=== PATIENT | male | born 1975 | race Caucasian/White ===

== ENCOUNTER 2024-10-22 09:06 | Day surgery (SDC) | payer BC ==
[2024-10-21 16:33] VITALS: BMI 32.6
[2024-10-22] MEDS ORDERED: KETAMINE HCL 100 MG/ML - 5ML VIAL ONE (11:35)
[2024-10-22] MEDS ORDERED: SUCCINYLCHOLINE CHLORIDE 200 MG/10 ML SYRINGE ONE (11:37)
[2024-10-22 12:47] VITALS: PULSE 78; RESP 19; TEMP 98
[2024-10-22 13:02] VITALS: BP 112/60
== END 2024-10-22 12:45 | disposition home or self-care (01) ==
LOC: FECT 09:06
PROVIDERS: ATTEND Student in an Organized Health Care Education/Training Program
PROC: GZB4ZZZ Other Electroconvulsive Therapy (ICD-10-PCS; principal; 2024-10-22 11:42)
DX: F33.9 Major depressive disorder, recurrent, unspecified (principal)
CPT/HCPCS: 90870; 94760

== ENCOUNTER 2024-10-27 06:47 | Day surgery (SDC) | payer BC ==
[2024-10-22 11:49] VITALS: BMI 32.6
[2024-10-27] MEDS ORDERED: SUCCINYLCHOLINE CHLORIDE 200 MG/10 ML SYRINGE ONE (07:43)
[2024-10-27] MEDS ORDERED: PROPOFOL 20 ML ONE (07:43)
[2024-10-27] MEDS ORDERED: KETAMINE HCL 100 MG/ML - 5ML VIAL ONE (07:43)
[2024-10-27] MEDS ORDERED: KETOROLAC TROMETHAMINE 30 MG/1 ML VIAL ONE (07:44)
[2024-10-27 08:45] VITALS: RESP 18; TEMP 98.2
[2024-10-27 09:17] VITALS: BP 139/74; PULSE 69
== END 2024-10-27 09:15 | disposition home or self-care (01) ==
LOC: FECT 06:47
PROVIDERS: ATTEND Student in an Organized Health Care Education/Training Program
PROC: GZB4ZZZ Other Electroconvulsive Therapy (ICD-10-PCS; principal; 2024-10-27 07:56)
DX: F32.A Depression, unspecified (principal)
CPT/HCPCS: 90870; 94760

== ENCOUNTER 2024-11-04 10:06 | Day surgery (SDC) | payer BC ==
[2024-11-02 14:33] VITALS: BMI 32.6
[2024-11-04 12:32] VITALS: RESP 16
[2024-11-04 13:09] VITALS: TEMP 98
[2024-11-04 13:29] VITALS: BP 114/71; PULSE 76
== END 2024-11-04 13:30 | disposition home or self-care (01) ==
LOC: FECT 10:06
PROVIDERS: ATTEND Student in an Organized Health Care Education/Training Program
PROC: GZB4ZZZ Other Electroconvulsive Therapy (ICD-10-PCS; principal; 2024-11-04 12:03)
DX: F32.A Depression, unspecified (principal)
CPT/HCPCS: 90870; 94760

== ENCOUNTER 2024-11-08 06:56 | Day surgery (SDC) | payer BC ==
[2024-11-05 13:49] VITALS: BMI 32.6
[2024-11-08 09:15] VITALS: RESP 20; TEMP 97.8
[2024-11-08 09:29] VITALS: BP 116/68; PULSE 62
== END 2024-11-08 09:15 | disposition home or self-care (01) ==
LOC: FECT 06:56
PROVIDERS: ATTEND Student in an Organized Health Care Education/Training Program
PROC: GZB4ZZZ Other Electroconvulsive Therapy (ICD-10-PCS; principal; 2024-11-08 07:44)
DX: F33.2 Major depressive disorder, recurrent severe without psychotic features (principal)
CPT/HCPCS: 90870; 94760

== ENCOUNTER → 2024-11-11 | Day surgery (SDC) | payer BC ==
[2024-11-09 13:23] VITALS: BMI 32.6
[~2024-11-11] MED LIST: KETAMINE HCL 100 MG/ML - 5ML VIAL ONE
[2024-11-11 13:41] VITALS: RESP 16; TEMP 97.9
[2024-11-11 13:45] VITALS: BP 125/79; PULSE 70
== END | disposition home or self-care (01) ==
LOC: FECT 11:11
PROVIDERS: ATTEND Student in an Organized Health Care Education/Training Program
PROC: GZB4ZZZ Other Electroconvulsive Therapy (ICD-10-PCS; principal; 2024-11-11 12:57)
DX: F33.2 Major depressive disorder, recurrent severe without psychotic features (principal)
CPT/HCPCS: 90870; 94760

== ENCOUNTER 2024-11-18 13:01 | Day surgery (SDC) | payer BC ==
[2024-11-18 13:12] VITALS: BMI 32.6
[2024-11-18 14:36] VITALS: TEMP 97.8
[2024-11-18 14:54] VITALS: BP 137/83; PULSE 64; RESP 18
== END 2024-11-18 14:55 | disposition home or self-care (01) ==
LOC: FECT 13:01
PROVIDERS: ATTEND Psychiatry & Neurology Psychiatry
PROC: GZB4ZZZ Other Electroconvulsive Therapy (ICD-10-PCS; principal; 2024-11-18 13:53)
DX: F33.2 Major depressive disorder, recurrent severe without psychotic features (principal)
CPT/HCPCS: 90870; 94760

== ENCOUNTER 2024-11-19 09:37 | Day surgery (SDC) | payer BC ==
[2024-11-18 14:33] VITALS: BMI 32.6
[2024-11-19 12:22] VITALS: BP 118/77; PULSE 57; RESP 16; TEMP 99
== END 2024-11-19 12:45 | disposition home or self-care (01) ==
LOC: FECT 09:37
PROVIDERS: ATTEND Student in an Organized Health Care Education/Training Program
PROC: GZB4ZZZ Other Electroconvulsive Therapy (ICD-10-PCS; principal; 2024-11-19 11:22)
DX: F33.2 Major depressive disorder, recurrent severe without psychotic features (principal)
CPT/HCPCS: 90870; 94760

== ENCOUNTER 2024-11-26 06:32 | Day surgery (SDC) | payer BC ==
[2024-11-22 10:23] VITALS: BMI 32.6
[2024-11-26 08:39] VITALS: RESP 18; TEMP 97.9
[2024-11-26 09:36] VITALS: BP 124/76; PULSE 71
== END 2024-11-26 09:47 | disposition home or self-care (01) ==
LOC: FECT 06:32
PROVIDERS: ATTEND Student in an Organized Health Care Education/Training Program
PROC: GZB4ZZZ Other Electroconvulsive Therapy (ICD-10-PCS; principal; 2024-11-26 07:58)
DX: F33.2 Major depressive disorder, recurrent severe without psychotic features (principal)
CPT/HCPCS: 90870; 94760

== ENCOUNTER 2024-12-10 10:22 | Day surgery (SDC) | payer BC ==
[2024-12-02 13:20] VITALS: BMI 32.6
[2024-12-10 11:23] VITALS: PULSE 69
[2024-12-10 13:19] VITALS: RESP 16; TEMP 98
[2024-12-10 13:37] VITALS: BP 126/72
== END 2024-12-10 13:10 | disposition home or self-care (01) ==
LOC: FECT 10:22
PROVIDERS: ATTEND Student in an Organized Health Care Education/Training Program
PROC: GZB4ZZZ Other Electroconvulsive Therapy (ICD-10-PCS; principal; 2024-12-10 11:03)
DX: F33.2 Major depressive disorder, recurrent severe without psychotic features (principal)
CPT/HCPCS: 90870; 94760

== ENCOUNTER 2024-12-16 10:13 | Day surgery (SDC) | payer BC ==
[2024-12-13 09:22] VITALS: BMI 32.6
[2024-12-16] MEDS ORDERED: KETAMINE HCL 100 MG/ML - 5ML VIAL ONE (10:43)
[2024-12-16 12:36] VITALS: BP 121/71; PULSE 68; RESP 18; TEMP 97
== END 2024-12-16 12:45 | disposition home or self-care (01) ==
LOC: FECT 10:13
PROVIDERS: ATTEND Student in an Organized Health Care Education/Training Program
PROC: GZB4ZZZ Other Electroconvulsive Therapy (ICD-10-PCS; principal; 2024-12-16 11:00)
DX: F32.A Depression, unspecified (principal)
CPT/HCPCS: 90870; 94760

== ENCOUNTER 2024-12-23 07:08 | Day surgery (SDC) | payer BC ==
[2024-12-23 07:28] VITALS: BMI 32.6
[2024-12-23] MEDS ORDERED: KETAMINE HCL 100 MG/ML - 5ML VIAL ONE (08:31)
[2024-12-23 09:43] VITALS: RESP 18; TEMP 97.5
[2024-12-23 10:04] VITALS: BP 130/88; PULSE 66
== END 2024-12-23 10:00 | disposition home or self-care (01) ==
LOC: FECT 07:08
PROVIDERS: ATTEND Student in an Organized Health Care Education/Training Program
PROC: GZB4ZZZ Other Electroconvulsive Therapy (ICD-10-PCS; principal; 2024-12-23 08:45)
DX: F32.A Depression, unspecified (principal)
CPT/HCPCS: 90870; 94760

== ENCOUNTER 2025-01-13 10:45 | Day surgery (SDC) | payer BC ==
[2025-01-07 14:21] VITALS: BMI 32.6
[2025-01-13] MEDS ORDERED: KETAMINE HCL 100 MG/ML - 5ML VIAL ONE (12:31)
[2025-01-13 13:33] VITALS: RESP 18; TEMP 98
[2025-01-13 13:58] VITALS: BP 131/89; PULSE 84
== END 2025-01-13 14:00 | disposition home or self-care (01) ==
LOC: FECT 10:45
PROVIDERS: ATTEND Student in an Organized Health Care Education/Training Program
PROC: GZB4ZZZ Other Electroconvulsive Therapy (ICD-10-PCS; principal; 2025-01-13 12:50)
DX: F33.9 Major depressive disorder, recurrent, unspecified (principal)
CPT/HCPCS: 90870; 94760

== ENCOUNTER 2025-01-20 11:58 | Day surgery (SDC) | payer BC ==
[2025-01-13 16:01] VITALS: BMI 32.6
[2025-01-20] MEDS ORDERED: KETAMINE HCL 100 MG/ML - 5ML VIAL ONE (12:57)
[2025-01-20] MEDS ORDERED: PROPOFOL 20 ML ONE (12:59)
[2025-01-20 15:42] VITALS: BP 140/85; PULSE 80; RESP 16; TEMP 97.9
== END 2025-01-20 14:35 | disposition home or self-care (01) ==
LOC: FECT 11:58
PROVIDERS: ATTEND Student in an Organized Health Care Education/Training Program
PROC: GZB4ZZZ Other Electroconvulsive Therapy (ICD-10-PCS; principal; 2025-01-20 13:02)
DX: F33.2 Major depressive disorder, recurrent severe without psychotic features (principal)
CPT/HCPCS: 90870; 94760

== ENCOUNTER 2025-02-03 08:23 | Day surgery (SDC) | payer BC ==
[2025-01-31 08:57] VITALS: BMI 32.6
[2025-02-03] MEDS ORDERED: KETAMINE HCL 100 MG/ML - 5ML VIAL ONE (09:44)
[2025-02-03] MEDS ORDERED: KETOROLAC TROMETHAMINE 30 MG/1 ML VIAL ONE (09:44)
[2025-02-03] MEDS ORDERED: SUCCINYLCHOLINE CHLORIDE 200 MG/10 ML SYRINGE ONE (09:44)
[2025-02-03] MEDS ORDERED: PROPOFOL 20 ML ONE (09:44)
[2025-02-03 10:33] VITALS: TEMP 98.9
[2025-02-03 10:45] VITALS: BP 142/97
[2025-02-03 11:10] VITALS: PULSE 80; RESP 18
== END 2025-02-03 11:55 | disposition home or self-care (01) ==
LOC: FECT 08:23
PROVIDERS: ATTEND Student in an Organized Health Care Education/Training Program
PROC: GZB4ZZZ Other Electroconvulsive Therapy (ICD-10-PCS; principal; 2025-02-03 09:50)
DX: F32.A Depression, unspecified (principal)
CPT/HCPCS: 90870; 94760

== ENCOUNTER 2025-02-17 13:36 | Day surgery (SDC) | payer BC ==
[2025-02-11 11:09] VITALS: BMI 32.6
[2025-02-17] MEDS ORDERED: KETAMINE HCL 100 MG/ML - 5ML VIAL ONE (15:49)
[2025-02-17 16:23] VITALS: RESP 16
[2025-02-17 16:45] VITALS: PULSE 86; TEMP 96.9
[2025-02-17 17:01] VITALS: BP 142/86
== END 2025-02-17 17:01 | disposition home or self-care (01) ==
LOC: FECT 13:36
PROVIDERS: ATTEND Student in an Organized Health Care Education/Training Program
PROC: GZB4ZZZ Other Electroconvulsive Therapy (ICD-10-PCS; principal; 2025-02-17 16:04)
DX: F32.A Depression, unspecified (principal)
CPT/HCPCS: 90870; 94760

== ENCOUNTER 2025-03-31 11:46 | Day surgery (SDC) | payer BC ==
[2025-03-29 07:53] VITALS: BMI 32.6
[2025-03-31] MEDS ORDERED: KETAMINE HCL 100 MG/ML - 5ML VIAL ONE (13:23)
[2025-03-31 14:23] VITALS: RESP 18; TEMP 99.4
[2025-03-31 14:48] VITALS: BP 124/72; PULSE 81
== END 2025-03-31 14:55 | disposition home or self-care (01) ==
LOC: FECT 11:46
PROVIDERS: ATTEND Student in an Organized Health Care Education/Training Program
PROC: GZB4ZZZ Other Electroconvulsive Therapy (ICD-10-PCS; principal; 2025-03-31 13:36)
DX: F33.2 Major depressive disorder, recurrent severe without psychotic features (principal)
CPT/HCPCS: 90870; 94760